=== PATIENT | male | born 1950 | race Caucasian/White ===

== ENCOUNTER 2019-04-16 12:13 | Emergency (ER) | payer MEDICARE, SELFPAY ==
[2019-04-16 12:14] VITALS: BP 121/74; PULSE 105; RESP 18; TEMP 37.7; O2SAT 97; BMI 28.3
--- NOTE | 2019-04-16 12:59 | CT_ITS ---
STUDY: CT ABDOMEN AND PELVIS WITH CONTRAST REASON FOR EXAM: Male, 69 years old. Lower abdominal pain, fever and nausea. RADIATION DOSAGE (If Supplied By Facility): CTDIvol = ( 17.56 ) mGy, DLP = ( 1271.50 ) mGycm TECHNIQUE: Transaxial images were obtained from the dome of the diaphragm to the symphysis pubis without oral contrast. 100ML IV Isovue 300 was administered. Sagittal and coronal images were reconstructed. Individualized dose optimization techniques were used for this CT. COMPARISON: None. FINDINGS: The visualized lung bases are unremarkable. The visualized portions of the heart are within normal limits. There is mild diffuse fatty infiltration of the liver. The liver is borderline in size. Normal gallbladder and extrahepatic biliary system. Normal spleen. Normal pancreas. Normal bilateral adrenal glands. There are small bilateral renal cysts. There is a 6 mm nonobstructing stone in the upper pole of the left kidney. There additional smaller stones in the lower pole of the left kidney. There is no evidence of hydronephrosis. There is a small hiatal hernia. Normal small intestine. There is thickening of the sigmoid colon with pericolonic stranding most consistent with acute diverticulitis. There is no evidence of free air or drainable abscess. The appendix is visualized and appears normal. There is minimal atherosclerotic calcification of the abdominal aorta, without a demonstrated aneurysm. Normal inferior vena cava. Normal retroperitoneum. Normal urinary bladder. The prostate is somewhat prominent. There is a small umbilical hernia containing fat. There is a small right inguinal hernia containing fat. There are diffuse degenerative changes of the visualized lumbar spine. CT/Abdomen/Pelvis W IV Cont ONLY IMPRESSION: 1. Thickening of the sigmoid colon with pericolonic inflammatory changes consistent with acute diverticulitis. 2. No drainable abscess or free air are seen. 3. Nonobstructing left renal stones without evidence of hydronephrosis. 4. Small bilateral renal cysts. 5. Fatty infiltration of the liver. 6. Small umbilical hernia and left inguinal hernia containing fat. Electronically Signed: John Martinez MD at 14:07 EDT Tel , Service support ,
[2019-04-16 13:15] LABS: Absolute Lymphocyte Count 0.54 X10^3/ul (0.83-4.51); Basophil# 0.01 X10^3/uL; Basophil% 0.1 % (0-1); Differential Indicated SCAN CRITERIA MET; Eosinophil# 0.01 X10^3/uL; Eosinophils% 0.1 % (0-5); Hematocrit 45.5 % (40-54); Hemoglobin 15.1 g/dl (13.0-16.5); Lymphocyte # 0.54 X10^3/ul (4.0); Lymphocyte % 4.3 % (19-41); Mean Corp Hgb Conc 33.2 g/gl (32-36); Mean Corpuscular Hgb 30.1 pg (27.0-32.0); Mean Corpuscular Volume 90.6 fL (80-94); Mean Platelet Vol. 9.5 fl (6.2-12.0); Monocyte# 0.89 X10^3/uL; Monocyte% 7.2 % (0-10); Neutrophil # 10.95 X10^3/uL (2.7-7.7); Neutrophil % 88.1 % (47-70); POSITIVE COUNT NO; POSITIVE DIFFERENTIAL YES; POSITIVE MORPHOLOGY NO; Platelet Count 236 K/mm3 (150-450); RBC Distribution Width CV 13.3 % (11.6-14.6); RBC Distribution Width SD 43.8 fl (35.1-43.9); Red Blood Count 5.02 M/mm3 (4.6-6.2); White Blood Count 12.4 K/mm3 (4.4-11.0)
[2019-04-16 13:28] LABS: ALB/GLOB Ratio 1.1 RATIO (0.9-2.4); AST(SGOT) 30 U/L (15-37); Alanine Aminotransfer ALT/SGPT 30 U/L (16-61); Albumin, Serum 3.9 g/dL (3.2-5.0); Alkaline Phosphatase 74 U/L (45-117); Anion Gap 5 (5-15); BUN 19 mg/dL (7-18); BUN/Creat Ratio 17.8 RATIO (10-20); Calcium,Total 9.1 mg/dL (8.5-10.1); Chloride 107 mmol/L (98-107); Creatinine, Serum 1.07 mg/dL (0.70-1.30); EST Glomerular Filtration Rate 73 mL/min (>60); Est Glom Filt Rate - Afr Amer 88 mL/min (>60); Estimated Creatinine Clearance 67.28 ml/min; Globulin 3.4 g/dL (2.2-4.2); Glucose 108 mg/dL (74-106); Lipase 105 U/L (73-393); Potassium 3.9 mmol/L (3.5-5.1); Protein, Total 7.3 g/dL (6.4-8.2); Sodium Level 140 mmol/L (136-145)
[2019-04-16] MEDS: 0.9% Normal Saline 1,000 ML 1000 ML IV (13:28)
[2019-04-16] MEDS: Morphine 4 MG/ML Syringe IV (13:28)
[2019-04-16] MEDS: Ondansetron 4 MG/2 ML Vial IV (13:29)
--- NOTE | 2019-04-16 14:24 | ED.VIS.GEN ---
History of Present Illness Chief Complaint: Abd Pain Onset: Days - 2 Current Severity: Moderate Maximum Severity: Moderate Narrative: Patient presents with left lower quadrant abdominal pain for the past few days. No fever or chills no diarrhea or constipation. He has no nausea or vomiting. He has no abdominal pain. Pain is mild to moderate. It is aching and constant. He does not have a history of diverticulitis in the past. He has no flank pain no testicular pain or urinary symptoms. Past Medical History - Allergies and Home Meds Allergies/Adverse Reactions: Allergies amoxicillin Allergy (Verified 04/16/19 12:17) Rash Sulfa (Sulfonamide Antibiotics) Allergy (Verified 04/16/19 12:17) Rash Primary Care Physician: Gilmar Wilkerson III, MD [Primary Care Provider] - Prior records reviewed: Yes Past Medical History: - - Noncontributory Lives: Spouse/ Significant Other Smoking Status: Unknown if ever smoked Review of Systems All systems negative except as indicated General: Denies: Chills, Fever, Sweats Eyes: Denies: Visual changes - bilaterally, Diplopia ENT: Denies: Rhinorrhea, Sore throat Cardiovascular: Denies: Chest pain, Palpitations Respiratory: Denies: Dyspnea, Cough, Dyspnea on exertion Gastrointestinal: Reports: Abdominal pain. Denies: Nausea, Vomiting, Diarrhea, Melena, Hematochezia Genitourinary: Denies: Dysuria, Hematuria, Frequency Musculoskeletal: Denies: Back pain, Extremity Pain Skin: Denies: Rash, Wounds Neurological: Denies: Headache, Weakness, Numbness Physical Exam Vital Signs/Narrative: Vital Signs Temp Pulse Resp BP Pulse Ox 04/16/19 12:14 99.9 F H 105 H 18 121/74 H 97 General: Well nourished, Well developed Head: Normocephalic ENT: Nasal congestion Cardiovascular: Regular rate, Regular rhythm Respiratory: No distress, CTA bilaterally Abdomen: Soft, Tender, - - Left lower quadrant tenderness without any guarding or rebound. No flank pain. : - - No inguinal or testicular pain Back: Nontender Extremities: Nontender, No edema Skin: No rash Neurological: Normal Gait Psychological: Normal affect Diagnostic/Tx/Re-eval - Medical Decision Making Patient is found to have acute diverticulitis. He does not have a white count, this is uncomplicated without abscess. I will treat with antibiotics and analgesia. Discharge stable condition ED Disposition - Plan for ED Patient: Disposition: Home or Assisted Living Diagnosis: Diverticulitis Instructions: Diverticulitis Prescriptions: Ciprofloxacin [Cipro] 500 mg PO BID #20 tab Prescription Printed Metronidazole [Flagyl] 500 mg PO TID #30 tab Prescription Printed Oxycodone HCl/Acetaminophen [Percocet 5/325] 1 tab PO Q6H PRN PRN 3 Days #12 tab PRN Reason: Pain Prescription Printed Referrals: Gilmar Wilkerson III, MD [Primary Care Provider] - 2 Days
[2019-04-16 14:43] VITALS: BP 119/76; PULSE 82; RESP 16
[2019-04-16] MEDS: Ciprofloxacin 500 MG Tablet PO (14:44)
[2019-04-16] MEDS: metroNIDAZOLE 500 MG Tablet PO (14:44)
== END 2019-04-16 14:47 | disposition home or self-care (01) ==
PROVIDERS: Emergency Provider Emergency Medicine; Family Provider Family Medicine; PCP Family Medicine
DX: K57.32 Diverticulitis of large intestine without perforation or abscess without bleeding (principal); Z79.899 Other long term (current) drug therapy; Z88.2 Allergy status to sulfonamides
CPT/HCPCS: 74177; 80053; 83690; 85025; 96361; 96374; 96375; 99283; J7030; Q9967; A4216; J2405

== ENCOUNTER 2020-04-27 09:06 | Emergency (ER) | payer MEDICARE, SELFPAY ==
[2020-04-27 09:07] VITALS: BP 137/85; PULSE 64; RESP 15; TEMP 36.2; O2SAT 98; BMI 33.0
--- NOTE | 2020-04-27 09:21 | CT_ITS ---
STUDY: CT ABDOMEN AND PELVIS WITHOUT CONTRAST REASON FOR EXAM: Male, 70 years old. LEFT FLANK PAIN MOSTLY IN BACK. DARK URINE, VOMITING. RADIATION DOSAGE (If Supplied By Facility): CTDIvol = ( 10.16 ) mGy, DLP = ( 550.99 ) mGycm TECHNIQUE: Transaxial images were obtained from the dome of the diaphragm to the symphysis pubis without oral contrast, and without intravenous contrast. Sagittal and coronal images were reconstructed. Individualized dose optimization techniques were used for this CT. COMPARISON: None. FINDINGS: Lung bases show interstitial edema with dependent atelectasis. There are calcified coronary vessels. Normal liver. Normal gallbladder and extrahepatic biliary system. Normal spleen. Normal pancreas. Normal bilateral adrenal glands. Right kidney shows no evidence of obstruction, there are punctate nonobstructing stones in the right kidney. Left kidney however shows moderate hydronephrosis and hydroureter with perinephric and periureteral inflammatory stranding. Findings are due to a 6 mm stone in the proximal left ureter best seen on axial image eighty-eight, and coronal recon image 67. There are nonobstructing stones in the left kidney. Normal visualized stomach. Normal small intestine. Scattered colonic diverticulosis, no CT evidence of acute diverticulitis. The appendix is visualized and appears normal. Appendix best seen on coronal recon image seventy-six. Normal abdominal aorta. Normal inferior vena cava. Normal retroperitoneum. Normal urinary bladder. There is borderline prostate enlargement with calcifications. There is a right-sided inguinal hernia containing adipose tissue. There are diffuse degenerative changes of the visualized lumbar spine, and pelvis. CT/Abdomen/Pelvis without Cont IMPRESSION: There is a 7 mm calcification in the proximal left ureter causing hydronephrosis, hydroureter, perinephric and periureteral inflammatory stranding. Bilateral punctate nonobstructing nephrolithiasis Colonic diverticulosis Normal appendix visualized Degenerative bony changes Interstitial edema in the lung bases with dependent atelectasis Electronically Signed: Gael Mcgrath MD at 10:43 EDT , Service support ,
--- NOTE | 2020-04-27 09:22 | ED.VIS.GEN ---
History of Present Illness Chief Complaint: Flank Pain Informant: Patient Narrative: Patient states that on Thursday he noticed that his urine was dark by the evening developed some pain in the left flank that was improved with Motrin. By Thursday morning he was feeling much better. He did not have any further symptoms to this morning around 0630 hours. He states that the pain progressively got worse and eventually was vomiting. He tried Motrin but did that up. He had a CT scan approximately 1 year ago that showed kidney stones on the left. Past Medical History - Allergies and Home Meds Allergies/Adverse Reactions: Allergies amoxicillin Allergy (Verified 04/27/20 09:10) Rash Sulfa (Sulfonamide Antibiotics) Allergy (Verified 04/27/20 09:10) Rash Primary Care Physician: Gilmar Wilkerson III, MD [Primary Care Provider] - Smoking Status: Unknown if ever smoked Review of Systems General: Denies: Chills, Fever, Sweats Eyes: Denies: Visual changes - bilaterally, Diplopia ENT: Denies: Rhinorrhea, Sore throat Cardiovascular: Denies: Chest pain, Palpitations Respiratory: Denies: Dyspnea, Cough, Dyspnea on exertion Gastrointestinal: Reports: Nausea, Vomiting. Denies: Abdominal pain, Diarrhea, Melena, Hematochezia Genitourinary: Denies: Dysuria, Hematuria, Frequency Musculoskeletal: Reports: - - Left flank pain. Denies: Back pain, Extremity Pain Skin: Denies: Rash, Wounds Neurological: Denies: Headache, Weakness, Numbness Physical Exam Vital Signs/Narrative: Vital Signs Temp Pulse Resp BP Pulse Ox 04/27/20 09:07 97.2 F L 64 15 137/85 H 98 Inital Vital Signs reviewed: Yes General: Well nourished, Well developed, No Acute Distress Head: Normocephalic, Atraumatic Eyes: Perrl, EOMI ENT: Moist mucous membranes, No rhinorrhea Neck: Supple, Nontender Cardiovascular: Regular rate, Regular rhythm, No murmurs Respiratory: No distress, CTA bilaterally, Chest nontender Abdomen: Soft, Nontender, Nondistended, Normal bowel sounds Back: Nontender, Normal Inspection. Negative for: CVA tenderness Extremities: Nontender, No edema Skin: Normal color, No rash Neurological: Alert, Oriented x3, Cranial nerves II-XII grossly intact, Normal Strength, Normal Sensation Psychological: Normal affect, Normal Mood Diagnostic/Tx/Re-eval Clinical Impression(s) from Imaging Studies Abdomen/Pelvis CT 04/27/20 09:21 IMPRESSION: There is a 7 mm calcification in the proximal left ureter causing hydronephrosis, hydroureter, perinephric and periureteral inflammatory stranding. Bilateral punctate nonobstructing nephrolithiasis Colonic diverticulosis Normal appendix visualized Degenerative bony changes Interstitial edema in the lung bases with dependent atelectasis Electronically Signed: Gael Mcgrath MD at 10:43 EDT , Service support , Laboratory Last Values WBC 9.8 K/mm3 (4.4-11.0) 04/27/20 09:33 RBC 4.97 M/mm3 (4.6-6.2) 04/27/20 09:33 Hgb 15.2 g/dL (13.0-16.5) 04/27/20 09:33 Hct 46.8 % (40-54) 04/27/20 09:33 MCV 94.2 fL (80-94) H 04/27/20 09:33 MCH 30.6 pg (27.0-32.0) 04/27/20 09:33 MCHC 32.5 g/dL (32-36) 04/27/20 09:33 RDW Std Deviation 44.7 fl (35.1-43.9) H 04/27/20 09:33 RDW Coeff of [place] 13.0 % (11.6-14.6) 04/27/20 09:33 Plt Count 262 K/mm3 (150-450) 04/27/20 09:33 MPV 9.5 fl (6.2-12.0) 04/27/20 09:33 Immature Gran % (Auto) 0.600 % (0.0-0.9) 04/27/20 09:33 Neut % (Auto) 84.3 % (47-70) H 04/27/20 09:33 Lymph % (Auto) 7.7 % (19-41) L 04/27/20 09:33 [place] % (Auto) 6.2 % (0-10) 04/27/20 09:33 Eos % (Auto) 0.8 % (0-5) 04/27/20 09:33 Baso % (Auto) 0.4 % (0-1) 04/27/20 09:33 Absolute Neuts (auto) 8.2 X10^3/uL (2.0-7.7) H 04/27/20 09:33 Absolute Lymphs (auto) 0.75 X10^3/uL (0.83-4.51) L 04/27/20 09:33 Nucleated RBC % 0 % (0-5) 04/27/20 09:33 Sodium 140 mmol/L (136-145) 04/27/20 09:33 Potassium 4.0 mmol/L (3.5-5.1) 04/27/20 09:33 Chloride 105 mmol/L (98-107) 04/27/20 09:33 Carbon Dioxide 33.0 mmol/L (21.0-32.0) H 04/27/20 09:33 Anion Gap 2 (5-15) L 04/27/20 09:33 BUN 19 mg/dL (7-18) H 04/27/20 09:33 Creatinine 1.20 mg/dL (0.70-1.30) 04/27/20 09:33 Estim Creat Clear Calc 59.14 ml/min 04/27/20 09:33 Est GFR (MDRD) Af Amer 77 mL/min (>60) 04/27/20 09:33 Est GFR (MDRD) Non-Af 64 mL/min (>60) 04/27/20 09:33 BUN/Creatinine Ratio 15.8 RATIO (10-20) 04/27/20 09:33 Glucose 135 mg/dL (74-106) H 04/27/20 09:33 Calcium 9.5 mg/dL (8.5-10.1) 04/27/20 09:33 Urine Color Yellow (Yellow) 04/27/20 11:09 Urine Clarity Clear (Clear) 04/27/20 11:09 Urine pH 5.0 (5.0 - 8.0) 04/27/20 11:09 Ur Specific [place] 1.025 (1.002-1.030) 04/27/20 11:09 Urine Protein 15 mg/dl (Negative) H 04/27/20 11:09 Urine Glucose (UA) Normal mg/dl (Normal) 04/27/20 11:09 Urine Ketones Negative mg/dl (Negative) 04/27/20 11:09 Urine Occult Blood 25 /ul (Negative) H 04/27/20 11:09 Urine Nitrite Negative (Negative) 04/27/20 11:09 Urine Bilirubin Negative mg/dL (Negative) 04/27/20 11:09 Urine Urobilinogen Normal mg/dl (Normal) 04/27/20 11:09 Ur Leukocyte Esterase 25 /ul (Negative) H 04/27/20 11:09 Urine RBC 5-10 SEEN /hpf (0-5) 04/27/20 11:09 Urine WBC 0-5 SEEN /hpf (0-5) 04/27/20 11:09 Ur Squamous Epith Cells 0 SEEN /hpf (0-5) 04/27/20 11:09 Urine Bacteria 0 SEEN /hpf (None Seen) 04/27/20 11:09 Urine Mucus 0 SEEN /hpf (<or=2+) 04/27/20 11:09 - Medical Decision Making He was established and the patient received fluids, Zofran, and Toradol. Pain was improved but not resolved. He received additional dose of morphine. Case was discussed with Dr. Herzog. Patient will be written prescriptions for pain medicine and nausea medicine. He will follow-up next week. If the patient's pain is uncontrolled he may certainly return to the emergency department at any time. ED Disposition - Plan for ED Patient: Disposition: Home or Assisted Living Diagnosis: Left ureteral calculus, Hydronephrosis, Renal colic on left side Instructions: ED Renal Stone w Colic Prescriptions: Hydrocodone Bitart/Apap 5-325 [[place] 5MG-325MG] 1 tab PO Q6H PRN PRN 5 Days #20 tab PRN Reason: Pain Prescription Printed Ondansetron [Zofran Odt] 4 mg PO Q8H PRN PRN #14 tab PRN Reason: Nausea Prescription Printed Referrals: Nico Herzog MD [STAFF PHYSICIAN] - As soon as possible
[2020-04-27] MEDS: Ketorolac 30 MG/ML Syringe 15 MG IV (09:37)
[2020-04-27] MEDS: 0.9% Normal Saline 1,000 ML 250 ML IV (09:38)
[2020-04-27] MEDS: Ondansetron 4 MG/2 ML Vial IV ×2 (09:38→12:11)
[2020-04-27 09:40] LABS: Absolute Lymphocyte Count 0.75 X10^3/uL (0.83-4.51); Absolute Neutrophil Count 8.2 X10^3/uL (2.0-7.7); Basophil# 0.04 X10^3/uL; Basophil% 0.4 % (0-1); Eosinophil# 0.08 X10^3/uL; Eosinophils% 0.8 % (0-5); Hematocrit 46.8 % (40-54); Hemoglobin 15.2 g/dL (13.0-16.5); Lymphocyte # 0.75 X10^3/ul (4.0); Lymphocyte % 7.7 % (19-41); Mean Corp Hgb Conc 32.5 g/dL (32-36); Mean Corpuscular Hgb 30.6 pg (27.0-32.0); Mean Corpuscular Volume 94.2 fL (80-94); Mean Platelet Vol. 9.5 fl (6.2-12.0); Monocyte% 6.2 % (0-10); NRBC Flagged by Analyzer 0 % (0-5); Neutrophil # 8.22 X10^3/uL (2.7-7.7); Neutrophil % 84.3 % (47-70); Platelet Count 262 K/mm3 (150-450); RBC Distribution Width SD 44.7 fl (35.1-43.9); Red Blood Count 4.97 M/mm3 (4.6-6.2); White Blood Count 9.8 K/mm3 (4.4-11.0)
[2020-04-27 10:00] LABS: Anion Gap 2 (5-15); BUN 19 mg/dL (7-18); BUN/Creat Ratio 15.8 RATIO (10-20); Calcium,Total 9.5 mg/dL (8.5-10.1); Chloride 105 mmol/L (98-107); EST Glomerular Filtration Rate 64 mL/min (>60); Est Glom Filt Rate - Afr Amer 77 mL/min (>60); Estimated Creatinine Clearance 59.14 ml/min; Glucose 135 mg/dL (74-106); Sodium Level 140 mmol/L (136-145)
[2020-04-27 11:16] LABS: Bacteria 0 SEEN /hpf (None Seen); Mucous, Urine 0 SEEN /hpf (<or=2+); Squamous Epithelial Cells - UA 0 SEEN /hpf (0-5)
[2020-04-27 11:19] LABS: Color, Urine Yellow (Yellow); Glucose, Dipstick Normal (Normal); Ketone-Dipstick Negative (Negative); Leukocyte Esterase-Dipstick 25 /ul (Negative); Nitrite-Dipstick Negative (Negative); Occult Blood-Urine 25 /ul (Negative); Protein-Dipstick 15 mg/dl (Negative); Specific Gravity, Urine 1.025 (1.002-1.030); Urine Bilirubin Dipstick Negative (Negative); Urine Clarity Clear (Clear); Urine Urobilinogen Normal (Normal)
[2020-04-27 11:30] LABS: Red Blood Cells-Urine 5-10 SEEN /hpf (0-5); White Blood Cells 0-5 SEEN /hpf (0-5)
[2020-04-27] MEDS: Morphine 4 MG/ML Syringe IV (12:10)
[2020-04-27 12:28] VITALS: BP 137/81; PULSE 81; RESP 16; O2SAT 99
== END 2020-04-27 12:29 | disposition home or self-care (01) ==
PROVIDERS: Emergency Provider Emergency Medicine; PCP Family Medicine
DX: N13.2 Hydronephrosis with renal and ureteral calculous obstruction (principal); Z79.899 Other long term (current) drug therapy; Z87.442 Personal history of urinary calculi
CPT/HCPCS: 74176; 80048; 81001; 85025; 96361; 96374; 96375; 96376; 99284; J7030; A4216; J2405

== ENCOUNTER 2020-05-04 11:42 | Day surgery (SDC) | payer MEDICARE, SELFPAY ==
--- NOTE | 2020-05-04 11:45 | RAD_ITS ---
STUDY: X-RAY - ABDOMEN/PELVIS REASON FOR EXAM: Male, 70 years old. PRE OP LEFT KIDNEY STONE TECHNIQUE: Single AP view of the abdomen / pelvis. COMPARISON: None. FINDINGS: There is an abundance of fecal material throughout the colon. There is a 6.6 mm calcification overlying the transverse processes of the L5 vertebrae on the left side suggestive of a mid left ureteral calculus. Small bilateral intrarenal calculi. There are calcified phleboliths in the pelvis. There are degenerative changes of the visualized lumbar spine. RAD/Abdomen Single View IMPRESSION: 6.6 mm calculus overlying the transverse processes of the L5 vertebrae on the left side. Small bilateral intrarenal calculi. Electronically Signed: Mac Glass, at 11:59 EDT , Service support ,
[2020-05-04 12:07] VITALS: BP 136/83; PULSE 97; RESP 16; TEMP 36.8; O2SAT 98; BMI 28.8
[2020-05-04] MEDS: Lactated Ringers 1,000 ML 100 ML IV ×2 (12:28→16:19)
--- NOTE | 2020-05-04 14:40 | HP.PCM_ITS ---
History of Present Illness Date of Admission: 05/04/20 Chief Complaint: Mid left ureter calculi with obstruction The patient is a 70 year old male with obstructing stone in the mid left ureter we plan to proceed with shockwave lithotripsy and stent placement. Past Medical History Allergies amoxicillin Allergy (Verified 05/04/20 11:46) Rash Sulfa (Sulfonamide Antibiotics) Allergy (Verified 05/04/20 11:46) Rash Home Medications: Ambulatory Orders Medication Instructions Recorded Allopurinol 300 mg PO DAILY 04/16/19 Lisinopril [Zestril] 10 mg PO DAILY 04/16/19 Simvastatin 20 mg PO DAILY 04/16/19 Ondansetron [Zofran Odt] 4 mg PO Q8H PRN PRN #14 tab 04/27/20 Hydrocodone/Acetaminophen 1 ea PO PRN PRN 05/02/20 [Hydrocodon-Acetaminophen 5-325] Ciprofloxacin [Cipro] 500 mg PO BID #10 tab 05/04/20 Hydrocodone/Acetaminophen [[place] 1 ea PO Q4H PRN PRN #20 tab 05/04/20 5-325 Tablet] Surgical History: no surgical history Smoking Status: Never smoker Tobacco Use: Non-smoker Review of Systems Constitutional: Denies: Chills, Fever, Weight Change HEENT: Denies: Head Aches, Sinus Congestion, Sinus Drainage Cardiovascular: Denies: Chest Pain, Palpitations Respiratory: Denies: Cough, Shortness of breath at rest, Sputum production Gastrointestinal: Denies: Abdominal Pain, Nausea, Vomiting Genitourinary: Denies: Dysuria Musculoskeletal: Denies: Joint Pain, Joint Tenderness Skin: Denies: Rash, Wounds Neurological: Denies: Numbness, Tingling, Focal weakness Psychiatric: Denies: Anxiety, Depression, Homicidal Ideations, Suicidal Ideations Hematologic/ Lymphatic: Denies: Easy Bruising, Easy Bleeding VTE Information - Inpt Only VTE Present on Admission: No VTE Mechan Device Prophylaxis: SCD's - Physical Exam Vitals/I&O's: Vital Signs Temp Pulse Resp BP Pulse Ox 98.2 F 97 16 136/83 H 98 05/04/20 12:07 05/04/20 12:07 05/04/20 12:07 05/04/20 12:07 05/04/20 12:07 Oxygen Delivery Method Room Air Weight: 91.3 kg Body Mass Index (BMI) 28.8 General: Alert, Oriented x3, Cooperative HEENT: Atraumatic, PERRLA, EOMI, Normocephalic Neck: Supple, No JVD, Negative Carotid Bruits Lungs: Clear to auscultation, Normal air movement Cardiovascular: Regular rate, No murmurs Abdomen: Bowel Sounds Present, Soft, Non Tender Extremities: No edema, Capillary Refill Less than 3 Seconds Skin: No rashes, No breakdown Musculoskeletal: No Tenderness to Palpation of Joints or Extremities Neurological: Cranial nerves II-XII grossly intact Psych/Mental Status: Normal Affect, Appropriate Current Medications Lactated Ringer's () 1,000 mls @ 100 mls/hr IV .Q10H DON Last Admin: 05/04/20 12:28 Dose: 100 mls/hr Documented by: Assessment/Plan Plan to proceed with shockwave lithotripsy and left stent placement.
--- NOTE | 2020-05-04 14:41 | PCM.DC.URO ---
Discharge Diet: Light diet - advance as tolerated Discharge Activity: Return to Normal Activity, May not drive while taking narcotic pain medications. Call your doctor if your incision/area has: Sudden Increased Bleeding Call your doctor if you observe: Fever of 101 or Higher Suture Line Care: Avoid Pulling/Pushing, Avoid Pinching/Bending Allergies/Adverse Reactions: Allergies amoxicillin Allergy (Verified 05/04/20 11:46) Rash Sulfa (Sulfonamide Antibiotics) Allergy (Verified 05/04/20 11:46) Rash Medications to take at Discharge Allopurinol 300 mg PO DAILY 04/16/19 Lisinopril [Zestril] 10 mg PO DAILY 04/16/19 Simvastatin 20 mg PO DAILY 04/16/19 Ondansetron [Zofran Odt] 4 mg PO Q8H PRN PRN #14 tab 04/27/20 Hydrocodone/Acetaminophen [Hydrocodon-Acetaminophen 5-325] 1 ea PO PRN PRN 05/02/20 Ciprofloxacin [Cipro] 500 mg PO BID #10 tab 05/04/20 Hydrocodone/Acetaminophen [[place] 5-325 Tablet] 1 ea PO Q4H PRN PRN #20 tab 05/04/20 The following prescriptions were given: Ciprofloxacin [Cipro] 500 mg PO BID #10 tab Transmission Status: Pending to [facility] Hydrocodone/Acetaminophen [[place] 5-325 Tablet] 1 ea PO Q4H PRN PRN #20 tab PRN Reason: Pain Score 1-10/10 Prescription Printed Primary Care Physician: Gilmar Wilkerson III, MD [Primary Care Provider] - Test Results: Test results from this visit will be discussed in further detail at your follow-up appointment, if applicable. Please Follow Up With: Nico Herzog MD When: please call to make an appointment- with [facility]
[2020-05-04] MEDS: Cefazolin 2 GM in 0.9% Normal Saline 100 ML IV (14:44)
--- NOTE | 2020-05-04 15:38 | PCM.OPRPT ---
Report of Operation Date of Procedure: 05/04/20 Pre-Operative Diagnosis: Left renal calculi Post-Operative Diagnosis: Same Surgery/Procedure Performed:: Cystoscopy, left stent placement, left extracorporeal shockwave lithotripsy Description of Surgical Findings:: 70-year-old male was taken back to the operating room after smooth induction of general anesthesia he was placed supine on the table, the penis and testicles were prepped and draped in usual sterile fashion, went into the bladder with a 21 Sinhala rigid cystourethroscope, I then cannulated the left ureteral orifice with a Glidewire advanced a wire up into the kidney, I then backloaded the [place] catheter and then was able to push the stone up into the kidney and once a stone was in the renal pelvis of the left kidney and placed a stent. We then proceeded with shockwave lithotripsy we put the stone in the F2 focal point of the machine proceeded with shockwave lithotripsy treating the stone a total of 3000 shockwaves, at the end of the treatment the stone was broken up really well, we went at a rate of 90/min, between 5 to 7 kV. At the end of the procedure the patient anesthetic was reversed to get back to the PACU in good condition and will see him next week for a KUB and a cystoscopy stent removal. Type of Anesthesia:: General Drains: stent left - Admit VTE Documentation VTE Present on Admission: No VTE Mechan Device Prophylaxis: SCD's
[2020-05-04 15:48] VITALS: BP 118/80; BP 136/83; PULSE 91; RESP 16; TEMP 36.8; O2SAT 95
[2020-05-04] MEDS: Ketorolac 15 MG/ML Vial IV (15:56)
[2020-05-04 16:00] VITALS: BP 127/68; BP 136/83; PULSE 88; RESP 16; O2SAT 98
[2020-05-04 16:15] VITALS: BP 109/65; BP 136/83; PULSE 71; RESP 16; O2SAT 97
[2020-05-04 16:24] VITALS: BP 125/77; BP 136/83; PULSE 77; RESP 16; TEMP 36.6; O2SAT 97
[2020-05-04 17:22] VITALS: BP 111/62; BP 136/83; PULSE 70; RESP 16; TEMP 36.8; O2SAT 99
== END 2020-05-04 17:35 | disposition home or self-care (01) ==
LOC: SDC 11:43 → AC 11:44
PROVIDERS: Anesthesiology; PCP Family Medicine; Referring Provider Urology; Visit Provider Urology
PROC: (CPT 50590; principal; 2020-05-04 13:40)
DX: N13.2 Hydronephrosis with renal and ureteral calculous obstruction (principal); Z11.59 Encounter for screening for other viral diseases; I10 Essential (primary) hypertension; E78.00 Pure hypercholesterolemia, unspecified; M10.9 Gout, unspecified; Z79.899 Other long term (current) drug therapy; Z88.2 Allergy status to sulfonamides; Z87.442 Personal history of urinary calculi
CPT/HCPCS: 00873; 50590; 52332; 74018; 87635; 94799; J7120; C2617; J2405; U0003

== ENCOUNTER → 2020-05-08 15:07 | Outpatient (CLI) | payer MEDICARE, SELFPAY ==
[2020-05-04 12:07] VITALS: BMI 28.8
--- NOTE | 2020-05-08 15:11 | RAD_ITS ---
STUDY: X-RAY - ABDOMEN/PELVIS REASON FOR EXAM: Male, 70 years old. Calculus of ureter, left side -- surgery last week TECHNIQUE: Two AP supine views of the abdomen and pelvis. COMPARISON: 05/04/2020 FINDINGS: Since the previous study, patient has undergone placement of a left-sided JJ stent which appears in satisfactory position. Previously noted calcification in the mid left abdomen has changed position somewhat since the previous study and may have been displaced dorsally during stent placement. There is an unremarkable bowel gas pattern. There is no demonstrated free abdominal air. The visualized liver, spleen and kidneys are grossly normal in size and morphology. There are calcified phleboliths in the pelvis. There are diffuse degenerative changes of the visualized lumbar spine. RAD/Abdomen Single View IMPRESSION: Left-sided JJ stent in satisfactory position. Previously noted 0.6 mm calcification is now adjacent to the disc space between L2 and L3 and may have been pushed dorsally during stent placement Degenerative bony changes Electronically Signed: Gael Mcgrath MD at 15:36 EDT , Service support ,
== END ==
PROVIDERS: PCP Family Medicine; Referring Provider Urology; Visit Provider Urology
DX: N20.1 Calculus of ureter (principal)
CPT/HCPCS: 74018

== ENCOUNTER → 2020-06-26 14:06 | Outpatient (CLI) | payer MEDICARE, SELFPAY ==
--- NOTE | 2020-06-26 14:30 | RAD_ITS ---
STUDY: X-RAY - ABDOMEN/PELVIS REASON FOR EXAM: Male, 70 years old. KIDNEY STONE , LEFT SIDE, FOLLOW UP TECHNIQUE: Two AP supine views of the abdomen and pelvis. COMPARISON: 05/08/2020. CT abdomen pelvis 04/27/2020. FINDINGS: Interval removal off left-sided double-J stent. There is an unremarkable bowel gas pattern. There is no demonstrated free abdominal air. Stable small calculus over the left inferior renal pole. Previously seen proximal ureteral calculus is not visualized on current exam. Right kidney is obscured. There are stable calcified phleboliths in the pelvis. There are diffuse degenerative changes of the visualized lumbar spine. RAD/Abdomen Single View IMPRESSION: Stable inferior renal pole calculus. Previously seen left ureteral calculus is not present on current exam. Other nonacute findings as outlined above. Electronically Signed: Charlotte Guzmán MD at 3:21 EDT , Service support ,
== END ==
PROVIDERS: PCP Family Medicine; Referring Provider Urology; Visit Provider Urology
DX: N20.1 Calculus of ureter (principal)
CPT/HCPCS: 74018

== ENCOUNTER → 2023-05-01 | Outpatient (CLI) | payer MEDICARE, SELFPAY ==
[2023-05-01 16:34] LABS: Absolute Lymphocyte Count 1.22 X10^3/uL (0.83-4.51); Absolute Neutrophil Count 4.1 X10^3/uL (2.0-7.7); Basophil# 0.04 X10^3/uL; Basophil% 0.6 % (0-1); Eosinophil# 0.19 X10^3/uL; Hematocrit 48.9 % (40-54); Hemoglobin 15.7 g/dL (13.0-16.5); Lymphocyte # 1.22 X10^3/ul (0.83-4.51); Lymphocyte % 19.6 % (19-41); Mean Corp Hgb Conc 32.1 g/dL (32-36); Mean Corpuscular Hgb 30.7 pg (27.0-32.0); Mean Corpuscular Volume 95.5 fL (80-94); Mean Platelet Vol. 9.8 fl (6.2-12.0); Monocyte# 0.65 X10^3/uL; Monocyte% 10.4 % (0-10); NRBC Flagged by Analyzer 0 % (0-5); Neutrophil # 4.12 X10^3/uL (2.7-7.7); Neutrophil % 66.1 % (47-70); Platelet Count 269 K/mm3 (150-450); RBC Distribution Width CV 12.6 % (11.6-14.6); RBC Distribution Width SD 44.6 fl (35.1-43.9); Red Blood Count 5.12 M/mm3 (4.6-6.2); White Blood Count 6.2 K/mm3 (4.4-11.0)
[2023-05-01 16:55] LABS: ALB/GLOB Ratio 1.1 RATIO (0.9-2.4); AST(SGOT) 18 U/L (15-37); Alanine Aminotransfer ALT/SGPT 24 U/L (16-61); Alkaline Phosphatase 64 U/L (45-117); Anion Gap 4 (5-15); BUN 16 mg/dL (7-18); Calcium,Total 9.6 mg/dL (8.5-10.1); Chloride 107 mmol/L (98-107); Cholesterol 158 mg/dL (200); Creatinine, Serum 1.07 mg/dL (0.70-1.30); EST Glomerular Filtration Rate 72 mL/min (>60); Est Glom Filt Rate - Afr Amer 87 mL/min (>60); Globulin 3.7 g/dL (2.2-4.2); Glucose 98 mg/dL (74-106); High Density Lipoprotein 43 mg/dL; Potassium 4.1 mmol/L (3.5-5.1); Protein, Total 7.7 g/dL (6.4-8.2); Sodium Level 141 mmol/L (136-145); Triglycerides 137 mg/dL; Uric Acid 6.7 mg/dL (3.5-7.2); Very Low Density Lipoprotein 27 mg/dL (5-40)
[2023-05-01 16:59] LABS: PSA,Total - Annual Screen < 0.01 ng/mL (0.00-4.00)
== END | disposition home or self-care (01) ==
PROVIDERS: PCP Internal Medicine; Referring Provider Internal Medicine; Visit Provider Internal Medicine
DX: M10.9 Gout, unspecified (principal); N40.0 Benign prostatic hyperplasia without lower urinary tract symptoms; I10 Essential (primary) hypertension
CPT/HCPCS: 36415; 80053; 80061; 84153; 84550; 85025; G0103

== ENCOUNTER → 2023-11-02 | Outpatient (CLI) | payer MEDICARE, SELFPAY ==
--- OUTSIDE RECORDS SUMMARY | 2023-11-02 14:52 | XMS RPT_ITS | CCD ---
Author Name Unknown Address [facility] [place] [address] Organization [facility] Care Team Providers Care Paper Twister Tender Name Role Phone Lisette CARSON, Gilson Murphy Primary Care Provider Allergies Allergy Classification Reported Allergen(s) Allergy Type Date of Onset Reaction(s) Facility (3 sources) Amoxicillin Drug Allergy 6 Rash, Swelling, Other: See Comments [facility] Work Phone: (3 sources) Sulfonamides (Antibiotic) Propensity to adverse reactions 8 [facility] Medications Current Medications Medication Drug Class(es) Dates Sig (Normalized) Sig (Original) perflutren lipid microspheres 1.3 mL in NaCl (PF) 0.9% 10 mL injection (DEFINITY) (2 sources) Start: 11-19-2021 End: 02-18-2023 perflutren lipid microspheres 1.3 mL in NaCl (PF) 0.9% 10 mL injection (DEFINITY) 125 ml sodium chloride 9 mg/ml prefilled syringe (2 sources) Start: 11-19-2021 End: 02-18-2023 sodium chloride 0.9 % (flush) 10 mL (BD POSIFLUSH) Completed/Discontinued Medications Medication Drug Class(es) Dates Sig (Normalized) Sig (Original) allopurinol 300 mg oral tablet (3 sources) Xanthine Oxidase Inhibitor Start: 10-25-2021 End: 12-05-2021 take 1 tablet by mouth once daily allopurinol (ZYLOPRIM) 300 mg tablet Take 1 tablet by mouth once daily. 90 tablet 1 12/05/2021 Active Problems Problem Classification Problem Date Documented Da te Episodic/Chronic Disorders of lipid metabolism (3 sources) Hyperlipidemia; Translations: [Hyperlipidemia, unspecified] Onset: 09-20-2012 09-21-2015 Chronic Essential hypertension (3 sources) Benign essential hypertension; Translations: [Essential (primary) hypertension] Onset: 09-22-2013 09-22-2013 Chronic Gout and other crystal arthropathies (3 sources) Gout; Translations: [Gout, unspecified] Onset: 09-21-2015 09-21-2015 Chronic Other hereditary and degenerative nervous system conditions (3 sources) Mild cognitive impairment, so stated; Translations: [Mild cognitive impairment, so stated] Onset: 10-31-2019 10-31-2019 Chronic Results Test Name Value Interpretation Reference Range Facil ity Encounters Encounter Date Encounter Type Care Provider Facility Start: 05-27-2022 Refill Gilson Knox MD Work Phone: [facility] Procedures Date Procedure Procedure Detail Performing Clinician Start: 10-25-2021 Adult depression screening assessment Gilson Knox MD Work Phone: Start: 08-18-2019 Colonoscopy Damien Knox MD Work Phone: Plan of Treatment Date Care Activity Detail Author Start: 08-18-[address] [facility] Start: 08-18-2029 COLORECTAL CANCER SCREENING COLORECTAL CANCER SCREENING [facility] Start: 10-19-2027 Urine microalbumin profile DTA P,TDAP,TD (4 - Td or Tdap) [facility] Start: 10-23-2026 LIPID SCREEN LIPID SCREEN [facility] Start: 10-23-2024 DIABETES SCREEN DIABETES SCREEN [facility] Start: 10-25-2022 Adult depression scr eening assessment DEPRESSION SCREENING [facility] Start: 10-25-2022 ANNUAL PCP TEAM CRYSTALLOGRAPHER SACHI DISEASE VISIT ANNUAL PCP TEAM CHRONIC DISEASE VISIT [facility] Start: 06-05-2022 Influenza vaccination [facility] Start: 04-17-2022 ABDOMINAL AORTIC ANE URYSM SCREENING ABDOMINAL AORTIC ANEURYSM SCREENING [facility] Immunizations Immunization Date Immunization Notes Care Provider Fa cility 10-22-2020 influenza, high-dose , quadrivalent vaccine (FLUZONE HIGH DOSE QUADRIVALENT) Gilson Knox MD Work Phone: [facility] 10-20-2019 influenza, high dose seasonal, preservative-free Gilson Knox MD Work Phone: [facility] 10-21-2018 pneumococcal polysaccharide vaccine, 23 valent Gilson Knox MD Work Phone: [facility] 10-19-2017 tetanus and diphther ia toxoids, adsorbed, preservative free, for adult use (5 Lf of tetanus toxoid and 2 Lf of diphtheria toxoid) Gilson Knox MD Work Phone: [facility] 10-01-2015 influenza, high dose seasonal, preservative-free Gilson Knox MD Work Phone: [facility] 10-01-2015 pneumococcal conjuga te vaccine, 13 valent Gilson Knox MD Work Phone: [facility] 09-25-2014 influenza, seasonal, injectable Gilson Knox MD Work Phone: [facility] 05-10-2007 tetanus toxoid, redu cam diphtheria toxoid, and acellular pertussis vaccine, adsorbed Gilson Knox MD Work Phone: [facility] 05-26-1995 diphtheria and tetan us toxoids, adsorbed for pediatric use Gilson Knox MD Work Phone: [facility] Payers Date Payer Category Payer Medicare MMO MEDICARE MMO MEDADVANTAGE PPO [id number] 2016-Present [phone] [address] [place] [address] [facility] [id number] 2016 Medicare MMO MEDICARE MMO MEDADVANTAGE PPO [id number] 2016-Present [phone] [address] [place] [address] [facility] [id number] Social History Date Type Detail Facility Start: 08-22-2019 End: 04-17-2021 Tobacco smoking status NHIS Ex-smoker [facility] End: 04-17-1981 History of tobacco use Current smoker [facility] Start: 08-22-2019 End: 04-17-2021 Tobacco use and exposure Former smokeless tobacco user [facility] Start: 10-25-2021 Alcohol intake Current drinke r of alcohol (finding) [facility] Start: 10-25-[address] [facility] Start: 09-15-2019 History SDOH Alcohol Frequency 2 [facility] Start: 09-16-2011 Tobacco Comment quit smokeless tobacco in late 70's [facility] Start: 1950 Sex Assigned At Not on file [facility] Start: 10-23-2021 End: 11-22-2021 Exposure to SARS-CoV-2 (event) Not sure [facility] End: 04-17-1981 History of tobacco use Cigarette Smoker [facility] Work Phone: Clinical Notes 05-27-2007 to 05-27-2022 Telephone Encounter - Gina Jarrett LPN - 05/27/2022 10:48 AM EDTTelephone Encounter - Gilson Knox MD - 05/27/2022 9:53 AM EDT Note Date & Type Note Facility 05-27-2022 Miscellaneous Notes Spoke with patient's . States patient is transferring care to another provider. Does not need refills, states will have new provider review them to fill. Overdue for 6 month follow up. Please call to schedule OV. Patient has been identified by name and date of : Yes Pharmacy phones for refill(s): Requested Prescriptions Pending Prescriptions Disp Refills lisinopril (ZESTRIL, PRINIVIL) 10 mg tablet 90 tablet 1 Sig: Take 1 tablet by mouth once daily. simvastatin (ZOCOR) 20 mg tablet 90 tablet 1 Sig: Take 1 tablet by mouth daily at bedtime. allopurinol (ZYLOPRIM) 300 mg tablet 90 tablet 1 Sig: Take 1 tablet by mouth once daily. Date of last office visit in primary care: 10/25/2021, no future appt scheduled Last 2 Encounter Wt Readings: Date: Wt: 10/25/2021 96.3 kg (212 lb 3.2 oz) 04/17/2021 91.2 kg (201 lb) Previous labs/tests for medication: Cholesterol: HDL Cholesterol (mg/dL) Date Value 10/18/2020 41 HDL Cholesterol, Nonfasting (mg/dL) Date Value 10/23/2021 41 LDL Cholesterol (mg/dL) Date Value 10/18/2020 94 LDL Cholesterol, Nonfasting (mg/dL) Date Value 10/23/2021 93 ALT (U/L) Date Value 10/23/2021 19 Non HDL Cholesterol, Nonfasting (mg/dL) Date Value 10/23/2021 109 Blood Pressure: BUN (mg/dL) Date Value 10/23/2021 15 Sodium (mmol/L) Date Value 10/23/2021 139 Last 1 Encounter BP Readings: Date: BP: 10/25/2021 132/82 Please advise. Thank you. Florence Buenrostro LPN Advised pharmacy patient needs to call in to schedule an appt. documented in this encounter [facility] 12-05-2021 Miscellaneous Notes Patient's spouse Naomy calling to state the 3 pended scripts were to be sent to [facility] on 10/25/21, however [facility] states they never received them. Spouse asking if they can be resent. Thank you. documented in this encounter [facility] 10-28-2021 Miscellaneous Notes Reviewed. If symptoms worsen, will need to let us know PEACE. Phoned Pt. and discussed GI consult with him. He stated he would like to hold off D/T concerns with COVID. He and his stated they would prefer to revisit this towards the end of January. Patient in earlier today with complaint of difficulty swallowing during exam. Referral order placed to GI for EGD to evaluate for narrowing of his esophagus. Please contact patient about this referral and assist with scheduling. documented in this encounter [facility] 10-25-2021 Note HNO ID: [id number] Author: Pamela Carroll LPN Service: ? Author Type: ? Type: Progress Notes Filed: 10/25/2021 9:40 AM Note Text: EVENT MONITOR DISPOSABLE PATCH INSTRUCTIONS Patient Name: Alverto Mendoza [facility] Number: [id number] Skin prepped and cleansed with alcohol Patch secured to prepped area Monitor Activated Serial #: *[id number] Patient Instructed: 1.) Prescribed order timeframe 2.) Bathing guidelines 3.) Usage of event button and diary documentation 4.) Return of monitor at the end of prescribed order 5.) Call with problems [phone] or [phone]. [phone] Patient expresses a good understanding of instructions Pamela Carroll LPN [facility] 10-25-2021 Note HNO ID: [id number] Author: Gilson Knox MD Service: ? Author Type: Physician Type: Progress Notes Filed: 10/25/2021 11:35 AM Note Text: Chief Complaint Patient presents with: Physical: Pt denied SOB, chest pain Pain: (LT) neck pain rated 3, denied injury HPI Alverto Mendoza is a 71 year old male who presents here today for routine check up. Patient has been in good health without hospitalizations or ER visits. No falls in the last 6 months. Complaining of pain on the left side of his neck which started about a week ago. Described as stiffness, currently 3/10, without radiation. Thinks this is related to muscle strain from lifting boxes and shoveling snow. Seems to wax and wane. Treating with heating pad and self massage. Denies fall/injury, fever/chills. HTN: Mr. Mendoza indicates that he is feeling well and denies any symptoms referable to elevated blood pressure. Specifically denies headache, chest pain, palpitations, dyspnea and peripheral edema. Patient denies any side effects of his medication(s) and is compliant with their regimen. He does not check BP's generally. Alverto denies regular aerobic exercise. Does bike in the summer time. He watches his diet for sodium, low fat and low cholesterol generally not very much. Last 3 Encounter BP Readings: Date: BP: 10/25/2021 132/82 04/17/2021 138/76 10/22/2020 132/78 Gout: Taking allopurinol as prescribed without recent flare. History of Sleep apnea diagnosed on PSG in 12/2019. notes that patient does snore at night and he does have daytime somnolence and falls asleep quickly when sitting down. Has not been on CPAP/Bipap because he never completed his pap titration. Patient also notes some difficulty swallowing with sensation of food getting stuck in his chest without regurgitation and odynophagia. Past medical history, appointments, medications, allergies reviewed. Previous Medical History PAST MEDICAL HISTORY Diagnosis Date - Abdominal pain, left lower quadrant - Diverticulosis of colon (without mention of hemorrhage) - Essential hypertension, benign 09/22/2013 - Gout 09/12/2009 - Kidney stone - Mild cognitive impairment with memory loss 10/31/2019 - Other and unspecified hyperlipidemia 09/12/2009 - Snoring - Undescended and retracted testis s/p r orchiectomy Previous Surgical History PAST SURGICAL HISTORY Procedure Laterality Date - COLONOSCOPY FLX DX W/COLLJ SPEC WHEN PFRMD 07/27/2007 Colonoscopy - COLONOSCOPY FLX DX W/COLLJ SPEC WHEN PFRMD 08/18/[address] Rizo, pt needs to have MAC next time - ORCHIECTOMY SIMPLE Right - RPR 1ST INGUN HRNA AGE 5 YRS/> REDUCIBLE Hernia repair, inguinal - VASECTOMY UNI/BI SPX W/POSTOP SEMEN EXAMS complicated by staph infection Family History FAMILY HISTORY Problem Relation Age of Onset - Stroke Mother vascular dementia - Diabetes Father - Coronary Artery Disease Father [place] age 59 - other (hyperlipidemia) Sister - No Known Problems Sister - No Known Problems Sister - No Known Problems Sister - Leukemia Paternal Grandfather - Gout Daughter - No Known Problems Daughter - Gout Son Patient Allergies ALLERGIES Allergen Reactions - Amoxicillin Rash, Swelling, Other: See Comments peeling of hands/feet/lips - Sulfa (Sulfonamide * hives Current Medications Current Outpatient Medications on File Prior to Visit Medication Sig - zinc sulfate (ZINC-15 ORAL) Take by mouth. - lisinopril (ZESTRIL, PRINIVIL) 10 mg tablet Take 1 tablet by mouth once daily. - simvastatin (ZOCOR) 20 mg tablet Take 1 tablet by mouth daily at bedtime. - allopurinol (ZYLOPRIM) 300 mg tablet Take 1 tablet by mouth once daily. - cyanocobalamin, vitamin B-12, (VITAMIN B-12 ORAL) Take by mouth as needed. - albuterol sulfate (PROAIR RESPICLICK) 90 mcg/actuation aepb Inhale 2 Puffs as instructed every 4 hours as needed. (Patient not taking: Reported on 10/25/2021 ) No current facility-administered medications on file prior to visit. Social History Social History Tobacco Use - Smoking status: Former Smoker Quit date: 04/17/1981 Years since quittin.5 - Smokeless tobacco: Former User - Tobacco comment: quit smokeless tobacco in late 70's Vaping Use - Vaping Use: Never used Substance Use Topics - Alcohol use: Yes Alcohol/week: 1.0 standard drink Types: 1 Glasses of Wine (5oz) per week Comment: occasional wine/weekly - Drug use: No Review of Symptoms REVIEW OF SYSTEMS GENERAL: No weight loss, malaise or fevers RESPIRATORY: Negative for cough, hemoptysis, wheezing, COPD, dyspnea or shortness of breath CARDIOVASCULAR: Negative for chest pain, leg swelling, hypertension, CHF or palpitations GI: No nausea, vomiting, or diarrhea : No history of dysuria, frequency or incontinence, No difficulty urinating. Positive for nocturia >1 2 times per night which has not changed. SKIN: Negative for lesions, joe (more content not included)... [facility] 10-25-2021 Note HNO ID: [id number] Author: James Gomez MD Service: Interventional Cardiology Author Type: Physician Type: Procedures Filed: 12/13/2021 3:52 PM Note Text: Patient Name: Alverto Mendoza : 1950 Ordering Provider: Gilson Knox Indication: I49.9 Cardiac arrhythmia, unspecified Type of Monitor: Extended Monitoring-Zio Patch Enrollment Dates: 10/25/2021-11/08/2021 [facility] 08-26-2021 Note Patient Outreach (NE TNAV) REJIALVERTO Tonya ([id number]) 1950 M Date Time Provider Department 08/26/21 PJ JAMISON During your visit today, we recorded the following information about you: Pj Jamison Population Health Navigator 08/26/2021 11:09 AM Signed POPULATION HEALTH NAVIGATION OUTREACH Action/FYI Updated pcp field Contact made with patient or family member? NO Pt identified by name and : NO Outreach Outcome/Action PCP field updated Reason for Outreach Attribution: Provider Off-boarding Payer: Payor: MMO MEDICARE / Plan: MMO MEDADVANTAGE PPO / Product Type: PPO / Care Gap Reviewed:: Follow-up appointment Reminder: Reminder note to check Health Maintenance for items below Health Maintenance items due: HEPATITIS C SCREENING Never done BP CONTROLLED (<130/80) Never done SHINGRIX VACCINE(1 of 2) Never done DEPRESSION SCREENING due on 10/21/2019 INFLUENZA(1) due on 06/05/2021 Advanced Directives Completed: Have you ever planned for future healthcare decisions with a power of mergers and acquisitions attorney, living will, or advance directives? No. Please bring a copy to your next appointment or email to [email or web address] Referrals: N/A Message Sent to Practice: NO Navigation Signature: Pj Jamison Population Health Navigator August 26, 2021 11:09 AM Allergies As of Date: 08/26/2021 Noted Allergy Reaction AMOXICILLIN 01/18/2016 2 - Rash 7 - Swelling 14 - Other: See Comments Comments: peeling of hands/feet/lips SULFA (SULFONAMIDE ANTIBIOTICS) 02/18/2008 Comments: hives Date Reviewed: 04/17/2021 Reviewed by: Sandra Chadwick Ma - Fully Assessed Reason for Visit: Population Health Navigation Outreach [[id number]] Cmt: Offboarding Prescriptions as of 08/26/2021 - lisinopril (ZESTRIL, PRINIVIL) 10 mg tablet Take 1 tablet by mouth once daily. - simvastatin (ZOCOR) 20 mg tablet Take 1 tablet by mouth daily at bedtime. - allopurinol (ZYLOPRIM) 300 mg tablet Take 1 tablet by mouth once daily. - cyanocobalamin, vitamin B-12, (VITAMIN B-12 ORAL) Take by mouth as needed. - albuterol sulfate (PROAIR RESPICLICK) 90 mcg/actuation aepb Inhale 2 Puffs as instructed every 4 hours as needed. Problem List As Of Date 08/26/2021 Noted Resolved Abdominal pain, left lower quadrant [R10.32] 05/27/2007 09/25/2014 Hyperlipidemia with target LDL less than 100 [E*09/20/2012 Essential hypertension, benign [I10] 09/22/2013 Gout without tophus [M10.9] 09/21/2015 Mild cognitive impairment with memory loss [G31*10/31/2019 Encounter Status:Closed by YAQUELIN POPULATION HEALTH NAVIGATORPJ on 08/26/21 [facility] 08-26-2021 Note HNO ID: [id number] Author: Pj Jamison Population Health Navigator Service: ? Author Type: ? Type: Progress Notes Filed: 08/26/2021 11:09 AM Note Text: POPULATION HEALTH NAVIGATION OUTREACH Action/FYI Updated pcp field Contact made with patient or family member? NO Pt identified by name and : NO Outreach Outcome/Action PCP field updated Reason for Outreach Attribution: Provider Off-boarding Payer: Payor: MMO MEDICARE / Plan: MMO MEDADVANTAGE PPO / Product Type: PPO / Care Gap Reviewed:: Follow-up appointment Reminder: Reminder note to check Health Maintenance for items below Health Maintenance items due: HEPATITIS C SCREENING Never done BP CONTROLLED (<130/80) Never done SHINGRIX VACCINE(1 of 2) Never done DEPRESSION SCREENING due on 10/21/2019 INFLUENZA(1) due on 06/05/2021 Advanced Directives Completed: Have you ever planned for future healthcare decisions with a power of mergers and acquisitions attorney, living will, or advance directives? No. Please bring a copy to your next appointment or email to Referrals: N/A Message Sent to Practice: NO Navigation Signature: Pj Jamison Population Health Navigator August 26, 2021 11:09 AM [facility] documented as of this encounter (statuses as of 04/02/2022) [facility] History of Past illness Narrative* Problem Noted Date Resolved Date Abdominal pain, left lower quadrant 05/27/2007 09/25/2014 documented as of this encounter (statuses as of 04/23/2022) [facility] History of Past illness Narrative* Problem Noted Date Resolved Date Abdominal pain, left lower quadrant 05/27/2007 09/25/2014 documented as of this encounter (statuses as of 05/27/2022) [facility] Advance Directives Documents on File Type Date Recorded Patient Personnel Administrator Expl anation Advance Directive(s) 08/18/2019 7:26 AM Summary Purpose Family History No Family History Records Found Additional Source Comments Source Comments (unrecognize d section and content) In the event this informatio n is protected by the Federal Confidentiality of Alcohol and Drug Abuse Patient Records regulations: The Federal rules restrict any use of the information to criminally investigate or prosecute any alcohol or drug abuse patient.[facility] the event this information is protected by the Federal Confidentiality of Alcohol and Drug Abuse Patient Records regulations: The Federal rules restrict any use of the information to criminally investigate or prosecute any alcohol or drug abuse patient.[facility] the event this information is protected by the Federal Confidentiality of Alcohol and Drug Abuse Patient Records regulations: The Federal rules restrict any use of the information to criminally investigate or prosecute any alcohol or drug abuse patient.[facility] Reason for Visit (unrecogniz ed section and content) Reason Comments Appointment Reason Onset Date Comments Refill Request 05/27/2022 Care Teams (unrecognized sec tion and content) Paper Twister Tender Relationship Specialty Start Date End Date Gilson Knox MD [address] [place] [address] PCP - General Family Practice 08/26/21 Paper Twister Tender Relationship Specialty Start Date End Date Gilson Knox MD [address] [place] [address] PCP - General Family Practice 08/26/21 (unrecognized sect ion and content) No Status Records Found INFORMATION SOURCE (unrecogn ized section and content) FOR RECORDS PERTAINING TO PATIENTS WHO ARE OR HAVE BEEN ENROLLED IN A CHEMICAL DEPENDENCY/SUBSTANCEABUSE PROGRAM, SOME INFORMATION MAY BE OMITTED. This clinical summary was aggregated from multiple sources. Caution should be exercised in using it in the provision of clinical care. This summary normalizes information from multiple sources, and as a consequence, information in this document may materially change the coding, format and clinical context of patient data. In addition, data may be omitted in some cases. CLINICAL DECISIONS SHOULD BE BASED ON THE PRIMARY CLINICAL RECORDS. [facility]. provides no warranty or guarantee of the accuracy or completeness of information in this document.
[2023-11-02 16:56] LABS: Anion Gap 7 (5-15); BUN 16 mg/dL (7-18); BUN/Creat Ratio 15.8 RATIO (10-20); Calcium,Total 9.8 mg/dL (8.5-10.1); Chloride 104 mmol/L (98-107); Creatinine, Serum 1.01 mg/dL (0.70-1.30); EST Glomerular Filtration Rate 77 mL/min (>60); Est Glom Filt Rate - Afr Amer 93 mL/min (>60); Glucose 109 mg/dL (74-106); Potassium 4.2 mmol/L (3.5-5.1); Sodium Level 140 mmol/L (136-145)
== END | disposition home or self-care (01) ==
LOC: BIMLAB 14:33
PROVIDERS: PCP Internal Medicine; Referring Provider Internal Medicine; Visit Provider Internal Medicine
DX: I10 Essential (primary) hypertension (principal)
CPT/HCPCS: 36415; 80048

== ENCOUNTER → 2024-05-02 | Outpatient (CLI) | payer MEDICARE, SELFPAY ==
[2024-05-02 15:34] LABS: Absolute Lymphocyte Count 1.28 X10^3/uL (0.83-4.51); Absolute Neutrophil Count 3.6 X10^3/uL (2.0-7.7); Basophil# 0.03 X10^3/uL; Basophil% 0.5 % (0-1); Eosinophils% 5.2 % (0-5); Hematocrit 47.2 % (40-54); Hemoglobin 15.2 g/dL (13.0-16.5); Lymphocyte # 1.28 X10^3/ul (0.83-4.51); Mean Corp Hgb Conc 32.2 g/dL (32-36); Mean Corpuscular Volume 93.3 fL (80-94); Mean Platelet Vol. 9.9 fl (6.2-12.0); Monocyte% 10.3 % (0-10); NRBC Flagged by Analyzer 0 % (0-5); Neutrophil % 61.8 % (47-70); Platelet Count 275 K/mm3 (150-450); RBC Distribution Width CV 12.9 % (11.6-14.6); Red Blood Count 5.06 M/mm3 (4.6-6.2); White Blood Count 5.8 K/mm3 (4.4-11.0)
[2024-05-02 16:47] LABS: AST(SGOT) 17 U/L (15-37); Alanine Aminotransfer ALT/SGPT 24 U/L (16-61); Albumin, Serum 3.8 g/dL (3.2-5.0); Alkaline Phosphatase 68 U/L (45-117); Anion Gap 2 (5-15); BUN 13 mg/dL (7-18); BUN/Creat Ratio 12.6 RATIO (10-20); Calcium,Total 9.6 mg/dL (8.5-10.1); Chloride 110 mmol/L (98-107); Cholesterol 133 mg/dL (200); Creatinine, Serum 1.03 mg/dL (0.70-1.30); EST Glomerular Filtration Rate 75 mL/min (>60); Est Glom Filt Rate - Afr Amer 91 mL/min (>60); Globulin 3.8 g/dL (2.2-4.2); Glucose 99 mg/dL (74-106); High Density Lipoprotein 44 mg/dL; PSA,Total - Annual Screen 1.14 ng/mL (0.00-4.00); Potassium 4.3 mmol/L (3.5-5.1); Protein, Total 7.6 g/dL (6.4-8.2); Sodium Level 141 mmol/L (136-145); Triglycerides 139 mg/dL; Uric Acid 4.9 mg/dL (3.5-7.2); Very Low Density Lipoprotein 28 mg/dL (5-40)
== END | disposition home or self-care (01) ==
LOC: BIMLAB 14:22
PROVIDERS: PCP Internal Medicine; Referring Provider Internal Medicine; Visit Provider Internal Medicine
DX: I10 Essential (primary) hypertension (principal); N40.0 Benign prostatic hyperplasia without lower urinary tract symptoms; M1A.9XX0 Chronic gout, unspecified, without tophus (tophi)
CPT/HCPCS: 36415; 80053; 80061; 84153; 84550; 85025; G0103

== ENCOUNTER → 2024-11-02 | Outpatient (CLI) | payer MEDICARE, SELFPAY ==
[2024-11-02 12:21] LABS: Absolute Lymphocyte Count 1.03 X10^3/uL (0.83-4.51); Absolute Neutrophil Count 2.2 X10^3/uL (2.0-7.7); Basophil# 0.02 X10^3/uL; Basophil% 0.5 % (0-1); Eosinophil# 0.23 X10^3/uL; Eosinophils% 5.6 % (0-5); Hematocrit 45.4 % (40-54); Hemoglobin 14.8 g/dL (13.0-16.5); Lymphocyte # 1.03 X10^3/ul (0.83-4.51); Lymphocyte % 25.1 % (19-41); Mean Corp Hgb Conc 32.6 g/dL (32-36); Mean Corpuscular Hgb 30.3 pg (27.0-32.0); Mean Corpuscular Volume 92.8 fL (80-94); Mean Platelet Vol. 10.3 fl (6.2-12.0); Monocyte# 0.53 X10^3/uL; Monocyte% 12.9 % (0-10); NRBC Flagged by Analyzer 0 % (0-5); Neutrophil # 2.22 X10^3/uL (2.7-7.7); Platelet Count 221 K/mm3 (150-450); RBC Distribution Width CV 12.8 % (11.6-14.6); RBC Distribution Width SD 43.6 fl (35.1-43.9); Red Blood Count 4.89 M/mm3 (4.6-6.2); White Blood Count 4.1 K/mm3 (4.4-11.0)
[2024-11-02 12:43] LABS: ALB/GLOB Ratio 0.9 RATIO (0.9-2.4); AST(SGOT) 15 U/L (15-37); Alanine Aminotransfer ALT/SGPT 21 U/L (16-61); Albumin, Serum 3.7 g/dL (3.2-5.0); Alkaline Phosphatase 65 U/L (45-117); Anion Gap 7 (5-15); BUN 10 mg/dL (7-18); BUN/Creat Ratio 10.6 RATIO (10-20); Calcium,Total 9.6 mg/dL (8.5-10.1); Chloride 105 mmol/L (98-107); Creatinine, Serum 0.94 mg/dL (0.70-1.30); EST Glomerular Filtration Rate 83 mL/min (>60); Est Glom Filt Rate - Afr Amer 100 mL/min (>60); Globulin 3.9 g/dL (2.2-4.2); Glucose 117 mg/dL (74-106); Potassium 3.7 mmol/L (3.5-5.1); Protein, Total 7.6 g/dL (6.4-8.2); Sodium Level 140 mmol/L (136-145)
== END | disposition home or self-care (01) ==
LOC: BIMLAB 09:48
PROVIDERS: PCP Internal Medicine; Visit Provider Internal Medicine
DX: I10 Essential (primary) hypertension (principal)
CPT/HCPCS: 36415; 80053; 85025

== ENCOUNTER → 2025-09-22 | Outpatient (CLI) | payer MEDICARE, SELFPAY ==
[2025-09-22 12:28] LABS: Hematocrit 46.5 % (40-54); Hemoglobin 15.3 g/dL (13.0-16.5); Immature Granulocytes Count 0.020 X10^3/uL (0.0-0.0); Mean Corp Hgb Conc 32.9 g/dL (32-36); Mean Corpuscular Volume 94.3 fL (80-94); Mean Platelet Vol. 9.7 fl (6.2-12.0); NRBC Flagged by Analyzer 0 % (0-5); Platelet Count 280 K/mm3 (150-450); RBC Distribution Width CV 13.0 % (11.6-14.6); RBC Distribution Width SD 44.8 fl (35.1-43.9); Red Blood Count 4.93 M/mm3 (4.6-6.2); White Blood Count 5.6 K/mm3 (4.4-11.0)
[2025-09-22 14:01] LABS: AST(SGOT) 19 U/L (<=37); Alanine Aminotransfer ALT/SGPT 15 U/L (<=46); Albumin, Serum 4.5 g/dL (3.4-4.8); Alkaline Phosphatase 55 U/L (40-129); Anion Gap 12 (5-15); BUN 16 mg/dL (4-19); BUN/Creat Ratio 17.0 RATIO (10-20); Calcium,Total 9.8 mg/dL (7.6-11.0); Carbon Dioxide 24.2 mmol/L (21.0-32.0); Chloride 105 mmol/L (98-108); Cholesterol 155 mg/dL (<=200); Globulin 2.7 g/dL (2.2-4.2); Glucose 109 mg/dL (70-99); Low Density Lipoprotein Calc. 92 mg/dL; PSA,Total - Annual Screen 1.11 ng/mL (0.02-4.00); Potassium 3.7 mmol/L (3.3-5.1); Triglycerides 99 mg/dL; Uric Acid 4.8 mg/dL (3.5-7.2); Very Low Density Lipoprotein 20 mg/dL (5-40); cholesterol:hdl ratio screen 3.45
== END | disposition home or self-care (01) ==
LOC: MTLAB 10:32
PROVIDERS: PCP Internal Medicine; Referring Provider Internal Medicine; Visit Provider Internal Medicine
DX: I10 Essential (primary) hypertension (principal); N40.0 Benign prostatic hyperplasia without lower urinary tract symptoms; M1A.9XX0 Chronic gout, unspecified, without tophus (tophi)
CPT/HCPCS: 36415; 80053; 80061; 84153; 84550; 85025; G0103